=== PATIENT | male | born 1985 | race African-American/Black ===

== ENCOUNTER 2018-01-21 18:36 | Emergency (ER) | payer SELFPAY ==
[~2018-01-21] VITALS: Ht 182.9 cm; Wt 85.5 kg
[2018-01-21 20:01] LABS: APPEARANCE CLEAR ((CLEAR)); BILIRUBIN NEGATIVE; BLOOD NEGATIVE; COLOR YELLOW ((YELLOW)); GLUCOSE (STRIP) NEGATIVE; KETONES NEGATIVE; LEUKOCYTES NEGATIVE; NITRITE NEGATIVE; PROTEIN (STRIP) 30; SPECIFIC GRAVITY 1.017 (1.000-1.030); UCUL ADDED? NO; UROBILINOGEN 0.2 MG/DL (0.2-1.0)
[2018-01-21 20:12] LABS: AMPHETAMINE NEGATIVE (500 ng/mL); BARBITURATES NEGATIVE (200 ng/mL); BENZODIAZEPINES NEGATIVE (150 ng/mL); BUPRENORPHINE NEGATIVE (10 ng/mL); COCAINE NEGATIVE (150 ng/mL); METHADONE NEGATIVE (200 ng/mL); METHAMPHETAMINE NEGATIVE (500 ng/mL); OPIATES (MORPHINE) NEGATIVE (100 ng/mL); OXYCODONE NEGATIVE (100 ng/mL); PHENCYCLIDINE NEGATIVE (25 ng/mL); PROPOXYPHENE NEGATIVE (300 ng/mL); THC CANNABINOIDS NEGATIVE (50 ng/mL); TRICYCLIC ANTIDEPRESSANTS NEGATIVE (300 ng/mL)
[2018-01-21] MEDS ORDERED: REGLAN10 MG PO (20:50)
[2018-01-21] MEDS ORDERED: MOTRIN800 MG PO (20:50)
[2018-01-21 20:57] VITALS: BP 145/100
== END 2018-01-21 21:09 | disposition home or self-care (01) ==
LOC: EME 18:36
PROVIDERS: Nurse Practitioner Family
DX: R51 Headache (principal); F17.200 Nicotine dependence, unspecified, uncomplicated
CPT/HCPCS: 70450; 81003; 99281; 99284; J1100; J1200; J1885; J2765